=== PATIENT | male | born 1940 | race Caucasian/White ===

== ENCOUNTER 2019-11-02 12:57 | Outpatient (CLI) | payer MEDICARE ==
--- NOTE | 2019-11-02 14:37 | CT ---
CT CHEST WITH CONTRAST CLINICAL INDICATION: Cervical lymphadenopathy. Patient complains of bilateral neck palpable abnormalities. COMPARISON: None FINDINGS: Aorta: Minimal vascular calcifications are seen. Thoracic aorta is normal in caliber without evidence of an aortic dissection. Lungs: Calcified granulomata are seen in the left upper lobe with a tiny 3 mm nodular density seen at the lateral aspect of the lingula which also may represent a calcified granuloma but is too small to characterize. No additional discrete and noncalcified pulmonary nodule or mass is seen. No pleural effusion is evident. Minimal atelectasis versus scarring is seen at the posteromedial right lung base. Mediastinum: Calcified mediastinal and left hilar lymph nodes are present. No enlarged mediastinal, h ilar, or axillary lymph nodes are seen by CT size criteria. A dual-lead left subclavian cardiac pacemaking device is noted in place. A 1.9 cm x 1.5 cm soft tissu e density mass is seen in the anterior and inferior left atrium. There is a mass seen in the posterior neck soft tissues measuring 2.9 cm x 2 cm most suggestive of an enlarged right level 5 lymph node. Thyroid gland: Normal CT appearance. Osseous structures: Scattered degenerative changes and Schmorl's nodes are seen in the thoracic spine . Chest wall: No abnormality visualized. . Small hiatal hernia. Upper abdomen: Small hiatal hernia is present. Remainder of the upper abdomen demonstrates a normal C T appearance. IMPRESSION: 1. Left atrial mass measuring 1.9 cm in greatest dimension. Cardiac echocardiogram is recommended for further evaluation. 2. Enlarged right level 5 lymph node. 3. No evidence of mediastinal, axillary, or hilar lymphadenopathy. 4. Difficult to characterize 3 mm nodular density in the region of the lingula. This is closely adjac ent to 2 calcified granulomata and may also represent a calcified granuloma but is too small to characterize.
--- NOTE | 2019-11-02 15:07 | CT ---
CT neck soft tissues with contrast: DATE: 11/02/2019 HISTORY: 79-year-old male with R 59.0 cervical lymphadenopathy Palpable masses in the bilateral neck. 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 Lesser degree of such change in the contralateral left TMJ. Large amount of dental metallic hardware causes severe streak artifact, obscuring portions of oral cavity, buccal space, and portions of masti cator, submandibular, and superficial spaces. External marker adjacent to the palpable mass at right posterior neck corresponds to a large, lobulat ed well-circumscribed soft tissue density mass in the right posterior cervical space, indenting the lateral surface of the the right posterior paraspinal musculature from approximately the C3 level to the C6-7 level. The other external marker was placed lateral to the left submandibular region. No underlying mass is identified in the submandibular spaces bilaterally around the subcutaneous fat lateral to the left submandibular space. The upper one thirds of the bilateral submandibular glands and 7 mm spaces are obscured by the streak artifact mentioned above. No obvious major pathology is identified involving the parapharyngeal, pharyngeal mucosal, retrophary ngeal, computer support analyst, or perivertebral, spaces. Atherosclerotic calcification of bilateral proximal internal carotid arteries, including carotid bulbs. High-grade multilevel degenerative disc disease i n the cervical spine. Medialization of the right vocal cord. No obvious tumor mass identified at the thoracic inlet or upper mediastinum. Heavily calcified lymph nodes in subcarinal mediastinum and left hilum. IMPRESSION: 1. Large soft tissue density mass in the right posterior cervical space. Differential diagnosis inclu zee neurogenic tumor such as schwannoma arising from a branch of right spinal accessory nerve, versus malignant right level 5 lymph node, versus sarcoma. 2. Evidence for Right vocal cord paralysis. 3. High-grade arthrosis of bilateral temporomandibular joints, right worse than left. 4. Cervical spondylosis.
== END 2019-11-02 12:58 | disposition home or self-care (01) ==
LOC: SCSCT 12:57
PROVIDERS: ATTEND Specialist
DX: R59.0 Localized enlarged lymph nodes (principal); J98.4 Other disorders of lung; R93.89 Abnormal findings on diagnostic imaging of other specified body structures; J38.01 Paralysis of vocal cords and larynx, unilateral; M47.812 Spondylosis without myelopathy or radiculopathy, cervical region; M26.69 Other specified disorders of temporomandibular joint; M79.89 Other specified soft tissue disorders
CPT/HCPCS: 70491; 71260

== ENCOUNTER 2019-12-01 11:50 | Outpatient (CLI) | payer MEDICARE ==
--- NOTE | 2019-12-01 15:29 | PET ---
Radionucleotide PET scan with CT attenuation correction HISTORY: Diffuse large B-cell lymphoma. Head and neck. Initial staging. FINDINGS: Physiologic uptake of radiotracer throughout the enteric system and along each urinary trac t. Activity associated with the large right lower neck mass shows max SUV 21.3. Morphologic appearance is not significantly changed from recent CT neck 11/02/2019. Uptake at the soft tissue density area within the right maxillary sinus shows max SUV 5.8. There is e vidence of extensive internal fixation with metallic hardware. Immediately posterior to the lower central incisors, a focal area of increased uptake shows max SUV 6 .6. No hypermetabolic metabolic abnormalities are evident at the cardiac left atrial abnormality describe d on recent CT chest. No abnormal activity is apparent elsewhere. Nondiagnostic CT attenuation correction images show asymmetry of the aryepiglottic folds, right more pronounced than left, without hypermetabolic activity. Old right posterior rib fractures. Evidence of healed granulomatous disease throughout the chest and abdomen. Small hiatal hernia. Bilateral pars interarticularis defects evident at the lumbosacral junction. Diverticula arise from the colon without adjacent inflammation. IMPRESSION : Viable lymphoma limited to the large right lower posterior neck mass. Douville score 5. Activity associated with the gum tissue immediately posterior to the lower central incisors may be re active. Please correlate with clinical inspection regarding possibility of mucosal abnormality. Activity associated with the right maxillary sinus, where extensive trauma and surgery is evident, is favored to be reactive/inflammatory. Diverticulosis. No evidence of diverticulitis.
== END 2019-12-01 11:51 | disposition home or self-care (01) ==
LOC: PET 11:50
PROVIDERS: ATTEND Internal Medicine Hematology & Oncology
DX: C83.31 Diffuse large B-cell lymphoma, lymph nodes of head, face, and neck (principal); K57.90 Diverticulosis of intestine, part unspecified, without perforation or abscess without bleeding
CPT/HCPCS: 78815; A9552

== ENCOUNTER 2019-12-09 08:20 | Day surgery (SDC) | payer MEDICARE ==
[2019-12-08 10:50] VITALS: BMI 27.2
--- NOTE | 2019-12-08 17:12 | HP ---
HISTORY OF PRESENT ILLNESS: Paulino Croft is a 79-year-old male patient who I saw regarding a right posterior triangle neck mass that I felt uncomfortable inspecting because it was intimately associated with the spinal accessory nerve. The patient saw Dr. Dunn who removed this and the patient has done well. Pathology reveals lymphoma, B-cell. He has seen Dr. Snigh and has had a PET scan without evidence of other disease. He has an appointment to see Dr. Cr. The patient is followed by Dr. Mahajan and had a recent echocardiogram, cardiac evaluation. He is followed by Dr. Renée Murillo. Plan is for a low-profile MediPort outpatient, IV sedation and local anesthesia. He understands the risks and benefits, consents. MEDICATIONS: 1. Aspirin. 2. Atenolol. 3. Multivitamins. 4. Vitamin D3. 5. Vitamin C. 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 PAST SURGICAL HISTORY: Left shoulder lipoma removed, Dr. Elier Martines, 2016; pacemaker, 2013; echocardiogram, left atrial mass, 2013; laparoscopic bilateral inguinal hernia repairs, Dr. Lang, 2011; colonoscopy, polyps, Dr. Murillo, recheck in 7 years; recent excision of lymphoma of right posterior triangle; skin cancers removed. Tobacco cessation in 1989, ayl-vrd-i-half packs prior; alcohol, occasional beer, occasional drink. FAMILY HISTORY: Father , lymphoma, cardiac disease, Alzheimer's. Mother . ALLERGIES: NONE. REVIEW OF SYSTEMS: Noncontributory otherwise. PHYSICAL EXAMINATION: VITAL SIGNS: 177 pounds, 67 inches, blood pressure 130/67, 60 heart rate, 99 degrees. HEAD, EARS, EYES, NOSE AND THROAT: Unremarkable. LUNGS: Clear to auscultation. CARDIAC: Regular rate and rhythm without murmur or gallop. ABDOMEN: Soft, nontender. EXTREMITIES: Unremarkable. Well-healed right posterior triangle neck incision. Spinal accessory nerve, good function, normal. ASSESSMENT/PLAN: B-cell lymphoma. PLAN: MediPort placement. He understands risks and benefits and consents. Job ID: [id number]
[2019-12-09 08:34] LABS: #Basophils 0.1 thou/uL (0.0-0.2); #Eosinphils 0.1 thou/uL (0.0-0.7); #Lymphocytes 1.2 thou/uL (1.20-3.40); #Monocytes 0.5 thou/uL (0.11-0.59); #Neutrophils 4.1 thou/uL (1.40-6.50); %Basophils 1.5 % (0.0-1.0); %Eosinophils 1.5 % (0.0-10.0); %Lymphocytes 19.8 % (21.0-51.0); %Monocytes 8.1 % (0.0-10.0); %Neutrophils 69.1 % (42.0-75.0); Hemoglobin 15.9 g/dL (14.0-18.0); Mean Corpuscular HGB CONC 33.4 g/dL (32.0-36.0); Mean Corpuscular Hemoglobin 31.6 pg (27.0-31.0); Mean Corpuscular Volume 94.5 fL (78.0-98.0); Mean Platelet Volume 8.7 fL (7.4-10.4); Platelet Count 189 thou/uL (130-400); RBC Distribution Width 12.1 % (11.5-14.5); Red Blood Cell (RBC) Count 5.05 mill/uL (4.70-6.10); White Blood Cell (WBC) Count 5.9 thou/uL (4.8-10.8)
[2019-12-09] MEDS ORDERED: Fentanyl 100 MCG/2 ML VIAL ONE (08:37)
[2019-12-09] MEDS ORDERED: Sodium Bicarbonate 2.5 MEQ/5 ML VIAL ONE (08:37)
[2019-12-09] MEDS ORDERED: Midazolam HCl 2 mg/2 ml Vial ONE (08:37)
[2019-12-09 08:43] LABS: INR-International Normal Ratio 0.9; PTT 25.7 sec (22.9-36.1); Prothrombin Time 12.6 sec (12.0-14.7)
[2019-12-09 08:59] LABS: ALT (SGPT) 24 U/L (8-55); AST (SGOT) 23 U/L (5-34); Albumin 4.7 g/dL (3.4-4.8); Alkaline Phosphatase 95 U/L (40-110); Anion Gap 10 mmol/L (10-20); BUN (Urea Nitrogen) 16 mg/dL (8.4-25.7); Calc. Creatinine Clearance 82 mL/min (70-130); Calcium 9.7 mg/dL (7.8-10.44); Carbon Dioxide 30 mmol/L (23-31); Chloride 106 mmol/L (98-107); Estimated GFR-MDRD 85; Globulin 2.6 g/dL (2.4-3.5); Glucose 101 mg/dL (83-110); Potassium 4.4 mmol/L (3.5-5.1); Protein, Total 7.3 g/dL (5.8-8.1); Sodium 142 mmol/L (136-145); Uric Acid 6.3 mg/dL (3.5-7.2)
[2019-12-09 09:29] VITALS: BP 132/81; TEMP 98.4
--- NOTE | 2019-12-09 11:23 | CT ---
Exam: CT guided bone marrow biopsy HISTORY: Lymphoma COMPARISON: None FINDINGS: Successful CT-guided bone marrow biopsy of the right iliac bone. A single 11-gauge core [place]annah ple was obtained. Total of 9 cc of marrow was aspirated. No immediate or postprocedural complications TECHNIQUE: Consent obtained to perform a right iliac wing bone marrow biopsy. The patient was placed in a prone position on the CT gantry. The right iliac bone was deemed appropriate. Skin was prepped and draped in a sterile fashion. 1% lidocaine, buffered with sodium bicarbonate was used for local an esthesia. Under CT guidance, 11-gauge needle was advanced into the right iliac bone. Once the needle broke through the cortex, total of 9 cc of marrow was aspirated. A single bone marrow biopsy w as performed using the needle. Adequate sample was obtained. Patient tolerated the procedure well. No immediate or postprocedure complications IMPRESSION: Successful CT-guided bone marrow biopsy.
--- NOTE | 2019-12-12 15:04 | CT ---
Exam: CT guided bone marrow biopsy HISTORY: Lymphoma COMPARISON: None FINDINGS: Successful CT-guided bone marrow biopsy of the right iliac bone. A single 11-gauge core [place]annah ple was obtained. Total of 9 cc of marrow was aspirated. No immediate or postprocedural complications TECHNIQUE: Consent obtained to perform a right iliac wing bone marrow biopsy. The patient was placed in a prone position on the CT gantry. The right iliac bone was deemed appropriate. Skin was prepped and draped in a sterile fashion. 1% lidocaine, buffered with sodium bicarbonate was used for local an esthesia. Under CT guidance, 11-gauge needle was advanced into the right iliac bone. Once the needle broke through the cortex, total of 9 cc of marrow was aspirated. A single bone marrow biopsy w as performed using the needle. Adequate sample was obtained. Patient tolerated the procedure well. No immediate or postprocedure complications IMPRESSION: Successful CT-guided bone marrow biopsy. Transcribed Date/Time: 12/12/2019 3:04 PM
== END 2019-12-09 11:30 | disposition home or self-care (01) ==
LOC: RAD 08:20
PROVIDERS: ATTEND Internal Medicine Hematology & Oncology
DX: C83.31 Diffuse large B-cell lymphoma, lymph nodes of head, face, and neck (principal); Z79.82 Long term (current) use of aspirin; Z79.899 Other long term (current) drug therapy; Z87.891 Personal history of nicotine dependence; Z95.0 Presence of cardiac pacemaker
CPT/HCPCS: 20225; 36415; 77012; 80053; 83615; 84550; 85025; 85097; 85610; 85730; 88184; 88237; 88264; 88280; 88305; 88311; 88313; 88341; 88342; J2250; J3010

== ENCOUNTER 2019-12-13 06:05 | Outpatient (CLI) | payer MEDICARE, OTHER ==
[2019-12-14 13:49] LABS: SARS-CoV-2 MS2 Positive; SARS-CoV-2 N Gene Negative; SARS-CoV-2 S Gene Negative; SARS-CoV-2 orf1ab Negative
== END 2019-12-13 06:06 | disposition home or self-care (01) ==
LOC: LABBT 06:05
PROVIDERS: ATTEND Specialist
DX: Z01.812 Encounter for preprocedural laboratory examination (principal); Z11.59 Encounter for screening for other viral diseases; C85.10 Unspecified B-cell lymphoma, unspecified site
CPT/HCPCS: 87635; 93005; 93010; U0003

== ENCOUNTER 2019-12-16 07:31 | Day surgery (SDC) | payer MEDICARE ==
[2019-12-09 11:49] VITALS: BMI 26.3
[2019-12-16] MEDS ORDERED: Fentanyl 100 MCG/2 ML VIAL ONE (10:57)
[2019-12-16] MEDS ORDERED: Propofol 500 MG/50 ML VIAL ONE (10:57)
[2019-12-16] MEDS ORDERED: Midazolam HCl 2 mg/2 ml Vial ONE (10:57)
[2019-12-16] MEDS ORDERED: Lidocaine 1% w/Epinephrine 1:100K 20 ML VIAL ONE (11:00)
[2019-12-16] MEDS ORDERED: Bupivacaine PF 0.5% 30 ML VIAL ONE (11:00)
--- NOTE | 2019-12-16 12:29 | RAD ---
EXAM: Single view of the chest HISTORY: Status post Mediport placement COMPARISON: 03/01/2014 FINDINGS: Single view of the chest shows a normal sized cardiomediastinal silhouette. A right-sided Mediport is seen with its tip in the superior vena cava. No pneumothorax is seen. A left-sided pacemaker seen with its leads in the right atrium and ventricle. There is a calcified left hilar lymp h node. A stable calcified granuloma projects over the left mid thorax. The bones are unremarkable. IMPRESSION: Status post Mediport placement without evidence complication.
--- NOTE | 2019-12-16 14:16 | OP ---
DATE OF PROCEDURE: 12/16/2019 PREOPERATIVE DIAGNOSIS: Lymphoma. POSTOPERATIVE DIAGNOSIS: Lymphoma. PROCEDURE PERFORMED: Right subclavian vein low-profile MediPort, PowerPort. ANESTHESIA: TIVA, local with 0.5% Marcaine 30 mL, mixed with 1% Xylocaine with epinephrine 20 mL. Fluoroscopy used. DESCRIPTION OF PROCEDURE: The patient was taken to the operating room, on supine position, where under intravenous sedation, right chest clipped of hair, prepared with ChloraPrep, and draped in routine fashion. Local anesthetic mixture was infiltrated into the skin and subcutaneous tissue. Trocar and catheter in the infraclavicular approach to access the right subclavian vein, threading the J-wire. An incision was made to accommodate the port and subcutaneous pocket created, noted good hemostasis. Dilator and Peel-Away sheath placed over the J-wire into the subclavian vein and superior vena cava. Dilator and J-wire were removed. Catheter placed over the Peel-Away sheath. Peel-Away sheath removed. Fluoroscopic images obtained to place the catheter tip in optimal position in the superior vena cava, catheter tailored to length, connected to the MediPort, placed in the subcutaneous pocket and secured with 2 interrupted suture of 3-0 Prolene. Subcutaneous tissue was approximated with 3-0 Monocryl, skin with subdermal 4-0 Monocryl and [place] glue applied. Final fluoroscopic images revealed good line and port placement. Curry needle accessed the MediPort, aspirated blood, flushed with saline and heparinized saline solution. The patient tolerated the procedure well. Job ID: [id number]
== END 2019-12-16 12:40 | disposition home or self-care (01) ==
LOC: SDC 07:31
PROVIDERS: ATTEND Specialist
PROC: 0JH60WZ Insertion of Totally Implantable Vascular Access Device into Chest Subcutaneous Tissue and Fascia, Open Approach (ICD-10-PCS; principal; 2019-12-16)
PROC: 02HV33Z Insertion of Infusion Device into Superior Vena Cava, Percutaneous Approach (ICD-10-PCS; 2019-12-16)
PROC: B518ZZA Fluoroscopy of Superior Vena Cava, Guidance (ICD-10-PCS; 2019-12-16)
DX: C83.31 Diffuse large B-cell lymphoma, lymph nodes of head, face, and neck (principal); I49.5 Sick sinus syndrome; Z87.891 Personal history of nicotine dependence; Z79.82 Long term (current) use of aspirin; Z79.899 Other long term (current) drug therapy; Z95.0 Presence of cardiac pacemaker
CPT/HCPCS: 36561; 71045; C1788; J0690; J1642; J2250; J2704; J3010; S0020

== ENCOUNTER 2020-02-21 08:15 | Outpatient (CLI) | payer MEDICARE ==
--- NOTE | 2020-02-21 10:34 | PET ---
Radionucleotide PET scan with CT attenuation correction HISTORY: Diffuse large B-cell lymphoma. Restaging. COMPARISON: 12/01/2019. FINDINGS: Physiologic uptake of radiotracer is apparent throughout the enteric system and along each urinary tract. Reactive uptake at the base of the right maxillary sinus current max SUV 4.7 (previously 5.8) Reactive uptake at the posterior base of the lower incisors current max SUV 6.4 (previously 6.6). Sli ght asymmetry of the aryepiglottic folds with reactive uptake now evident. At the right posterior neck base, no hypermetabolic activity is now apparent max SUV 0.8. Lymph nodes are significantly smaller on the prior exam on the nondiagnostic CT attenuation correction images. Small hiatal hernia is again demonstrated. Other incidental findings are stable. IMPRESSION : Complete response. Interval resolution of hypermetabolic activity associated with the right neck tez opathy. No new abnormalities.
== END 2020-02-21 08:16 | disposition home or self-care (01) ==
LOC: PET 08:15
PROVIDERS: ATTEND Internal Medicine Hematology & Oncology
DX: C83.30 Diffuse large B-cell lymphoma, unspecified site (principal); R59.0 Localized enlarged lymph nodes
CPT/HCPCS: 78815; A9552

== ENCOUNTER 2020-05-31 09:39 | Outpatient (CLI) | payer MEDICARE ==
--- NOTE | 2020-05-31 11:26 | PET ---
EXAM: PET/CT HISTORY: History of diffuse large B-cell lymphoma TECHNIQUE: PET scanning with CT attenuation correction was performed from the vertex of the brain to the proxima l thighs following the intravenous administration of 11.2 millicuries [id number]. COMPARISON: PET/CT dated February 21, 2020 FINDINGS: Biodistribution:The biodistribution for the exam appears acceptable. Head and neck: There is appropriate background activity within the brain. No hypermetabolic lymphaden opathy or masses identified. Mild suspected reactive hypermetabolic uptake involving a right posterior maxillary molar and the man dibular incisors persists. No residual activity is seen at the aryepiglottic folds as seen on the prior exam. Thorax: No hypermetabolic pulmonary lesion, pleural effusion or lymphadenopathy is present. No hyperm etabolic pleural effusion is evident. There is a calcified granuloma in the left upper lobe. There are calcified lymph nodes within the mediastinum and left hilar region. There is a left subclavian ch est wall pacemaker. Abdomen and pelvis: There is expected background activity within the GI and systems. No hypermetab olic mass, lymphadenopathy or ascites is present. No hypermetabolic ascites is present. There is scattered colonic diverticulosis. There are calcified granuloma within the liver. Adrenal glands are normal.. Osseous structures and skin: No hypermetabolic skin or osseous lesion is identified. There is bilater al pars defects at L5 with rate 1 anterolisthesis. There is scattered degenerative and osteoarthritic change present. IMPRESSION: * No hypermetabolic lymphadenopathy is identified. * Mild reactive hypermetabolic uptake involving the right posterior maxillary molar and mandibular i ncisors is suspicious for periodontal disease. Dental referral is recommended.
== END 2020-05-31 09:40 | disposition home or self-care (01) ==
LOC: PET 09:39
PROVIDERS: ATTEND Internal Medicine Hematology & Oncology
DX: C83.30 Diffuse large B-cell lymphoma, unspecified site (principal); R93.89 Abnormal findings on diagnostic imaging of other specified body structures
CPT/HCPCS: 78815; A9552

== ENCOUNTER 2020-08-05 10:10 | Inpatient (IN) | payer MEDICARE ==
[2020-08-05] MEDS ORDERED: Dextrose 5% in Water 1,000 ML IV PRN (11:26)
[2020-08-05] MEDS ORDERED: Dextrose 50% Abboject 50 ML SYRINGE SLOW IVP PRN (11:26)
[2020-08-05] MEDS ORDERED: Ondansetron PF 4 MG/2 ML Vial IVP PRN (11:26)
[2020-08-05] MEDS ORDERED: hydrALAZINE 20 MG/ML VIAL SLOW IVP PRN (11:26)
[2020-08-05 11:33] VITALS: BMI 23.6
--- NOTE | 2020-08-05 12:17 | CON ---
DATE OF CONSULTATION: 08/05/2020 HISTORY OF PRESENT ILLNESS: The patient is a 80-year-old male who was transferred by [facility] ER for left frontal contusion following a fall. The patient was reportedly walking his dog when he had a mechanical fall. He was found by a bystander with positive LOC. He was brought to [place] ER and evaluated with a noncontrasted CT head and cervical spine. CT of the cervical spine was negative for acute injury. CT of the head was notable for a contrecoup injury with left frontal contusion. The patient takes an 81 mg aspirin. His platelets and coags were unremarkable. Reportedly, per their ER, somewhat confused, otherwise neurologically intact. The patient transferred to [facility] for neurosurgical consultation and admission to the Trauma Service. PAST MEDICAL HISTORY: Hypertension, non-Hodgkin lymphoma. PAST SURGICAL HISTORY: Hernia repair, tonsillectomy. SOCIAL HISTORY: He lives at home. He does not smoke, drink, or use any drugs. Current medication list is unavailable. The patient does report that he takes an 81 mg aspirin daily. He denies any other anticoagulants. REVIEW OF SYSTEMS: Per HPI. PHYSICAL EXAMINATION: VITAL SIGNS: Stable. CONSTITUTIONAL: He awakens easily. He is oriented x4. No acute distress. HEAD: He has a large right forehead contusion with overlying abrasion. EYES: PERRLA. Extraocular movements intact. ENT: [place], intact, moist. He has normal voice. NECK: Nontender. Free active range of motion. No meningismus or nuchal rigidity. CARDIAC: Regular rate and rhythm. PULMONARY: Symmetric chest expansion. No evidence of dyspnea. MUSCULOSKELETAL: No obvious deformities. Symmetric pulses. NEURO: He is alert and oriented to person, place, and time. He does have some difficulty remembering the events of the accident and is asking repeated questions, slightly confused. GCS 14. He is otherwise moving all 4's easily with good strength throughout. No gross motor deficits are appreciated. ASSESSMENT AND PLAN: This is a 80-year-old male with a mechanical fall and contrecoup injury with left frontal contusion. We will go ahead and watch him closely with q.2h neuro checks overnight and repeat his a.m. head CT. We should hold his aspirin. I have discussed the plan with the Trauma Service as well as Dr. Enrique. We will follow along closely. Job ID: [id number]
[2020-08-05] MEDS: Acetaminophen 500 MG TAB PO SCH ×2 (12:27→18:48)
[2020-08-05] MEDS: Sodium Chloride 0.9% 1,000 ML IV SCH ×2 (12:28→19:44)
--- NOTE | 2020-08-05 14:02 | HP ---
TRAUMA SURGEON: Dr. Bergeron. CONSULTING PHYSICIAN: Dr. Benavidez. HISTORY OF PRESENT ILLNESS: The patient is a 80-year-old male, who originally presented to [place] ER after a fall on the ice while walking his dog. He did have a loss of consciousness. Upon arrival to the emergency department, he was found to have a left frontal subdural and subarachnoid hemorrhages. Neurosurgery was consulted, who recommended transfer. On the outside hospital, the patient's GCS was 13, and it was unknown if he was on anticoagulation, and subsequently, he was transferred to the ICU. Upon my evaluation with Neurosurgery, we both felt that the patient was appropriate for transfer to the floor as his GCS was 14, and he was only minimally confused. He was amnestic to the events. He reports taking aspirin 81 mg once a day. He denies numbness or tingling in his bilateral upper or lower extremities. Reports that he has a mild headache. He does have a hematoma to his right forehead. REVIEW OF SYSTEMS: All additional 10-point review of systems negative except as indicated above. PAST MEDICAL HISTORY: Non-Hodgkin lymphoma, hypertension, and pacemaker placement for symptomatic bradycardia. PAST SURGICAL HISTORY: Jaw surgery, pacemaker placement, multiple biopsies, hernia repair, and tonsillectomy. SOCIAL HISTORY: The patient denies tobacco or drug use. He drinks about one beer a day. He lives at home with his and does not use any walker or cane to get around. MEDICATIONS: Include, 1. Aspirin 81 mg once a day. 2. Atenolol. 3. Various vitamins. ALLERGIES: NO KNOWN DRUG ALLERGIES. PHYSICAL EXAMINATION: VITAL SIGNS: Temperature 97.8, pulse 60, respirations 16, oxygen saturation 98% on room air, and blood pressure 158/66. PRIMARY SURVEY: Airway intact. Equal breath sounds bilaterally. 2+ pulses in bilateral radials, femorals, and DPs. GCS 14, -1 for confusion. Gross motor and sensation intact. No lacerations or external bleeding. He does have a right forehead hematoma with swelling. SECONDARY SURVEY: HEAD: Normocephalic. No gross palpable skull deformities or tenderness. EYES: Pupils 3-2, equal, round, and reactive to light bilaterally. ENT: No signs of trauma. FACE: The patient with right-sided forehead hematoma without any significant bleeding. C-SPINE: No step-offs or deformities. Nontender. C-collar not in place. ABDOMEN: Soft, nontender, nondistended. PELVIS: Stable to palpation. Nontender. No abrasions or ecchymosis noted. RECTAL: Deferred. GENITOURINARY: Deferred. EXTREMITIES: No gross deformities. No abrasions or ecchymosis noted. 2+ pulses in bilateral radials, femorals, and DPs. BACK/SPINE: No step-offs or deformities or tenderness to palpation of thoracic or lumbar spine. No abrasions or ecchymosis noted. NEUROLOGIC: 5/5 strength in bilateral incubator operator, plantar flexion, and dorsiflexion. Gross normal sensation x4 extremities. LABORATORY FINDINGS: White count 4.6, hemoglobin 13.6, hematocrit 39.0, and platelets 203. INR 1.0, PTT 22.8. Sodium 140, potassium 3.8, chloride 107, bicarb 28, BUN 16, creatinine 0.82, glucose 143. Troponin less than 0.10. DIAGNOSTIC FINDINGS: CT scan of the brain demonstrates subdural and subarachnoid hemorrhages along the left frontal and left parafalcine convexity. Small amount of subarachnoid blood along the right frontal convexity. Right scalp hematoma. CT scan of the C-spine demonstrates no cervical spinal fracture. Heterogeneous lucency along the cervical spine. Correlate for bone demineralization versus malignancy. The patient had a recent PET-CT, which was unremarkable when compared to the current exam with soft tissue. CT neck from 11/02/2019, the overall attenuation of the cervical vertebrae is stable. Interval development of a calcification on the left vocal cord. Direct visualization is recommended. ASSESSMENT: 1. Status post mechanical fall from standing. 2. Left frontal and left parafalcine subdural and subarachnoid hemorrhages. 3. History of non-Hodgkin lymphoma, pacemaker, and hypertension. PLAN: The patient is admitted to the Trauma Service. He can be transferred to the surgical nursing floor. Q.2 hours neuro checks. Head of the bed at 30 degrees. Goal systolic blood pressure less than 160. The patient to work with PT, OT, and Speech. Repeat head CT in the morning per Neurosurgery recommendation. The patient may be able to go home versus inpatient rehab when he is ready for discharge. This patient was discussed with Dr. Bergeron before this dictation. Job ID: [id number]
[2020-08-05 18:07] LABS: SARS-CoV-2 PCR by NAA Not Detected (NotDetected)
[2020-08-05] MEDS: Famotidine/PF 20 mg/2ml Vial SLOW IVP SCH (19:42)
[2020-08-05] MEDS: Senokot S 8.6-50 MG TAB PO SCH (19:43)
[2020-08-06] MEDS: Acetaminophen 500 MG TAB PO SCH ×5 (00:48→19:20)
[2020-08-06] MEDS ORDERED: Polyethylene Glycol 3350 17 GM Packet ONE (08:35)
[2020-08-06] MEDS ORDERED: Senokot S 8.6-50 MG TAB ONE (08:38)
[2020-08-06] MEDS ORDERED: Famotidine/PF 20 mg/2ml Vial ONE (09:26)
[2020-08-06] MEDS: Polyethylene Glycol 3350 17 GM Packet PO SCH (09:31)
[2020-08-06] MEDS: Famotidine/PF 20 mg/2ml Vial SLOW IVP SCH (09:31)
[2020-08-06] MEDS: Senokot S 8.6-50 MG TAB PO SCH ×2 (09:31→21:12)
--- NOTE | 2020-08-06 11:20 | CT ---
CT HEAD WITHOUT IV CONTRAST COMPARISON: 08/05/2020 HISTORY: Reevaluate traumatic brain injury. TECHNIQUE: Axial CT imaging at 5 mm intervals from vertex through skull base without contrast FINDINGS: Again noted is evidence of areas of subarachnoid hemorrhage in the bifrontal regions with small amoun t of subdural hemorrhage in a left parafalcine location and left anterior frontal region which is stable compared to prior exam. A new approximately 7 mm rounded focus of intraparenchymal hemorrhage is seen just superior to the region of the greater wing of sphenoid in the right anterior frontal lobe suggesting small focal contusion. There is no evidence of an acute infarction, mass effect, or m idline shift. The ventricular system is normal in size, shape, and position. Postoperative changes in each maxillary antrum are present with persistent opacification of the limit ed visualized right maxillary antrum. Mucosal thickening is present ethmoidal air cells bilaterally with trace mucosal thickening in right sphenoid sinus. Again noted is the right anterolateral frontal scalp hematoma as well as right periorbital subcutaneo us soft tissue swelling. Osseous structures appear intact. IMPRESSION: 1. New focal intraparenchymal hemorrhage/contusion in the inferior right frontal lobe just superior t o the region of the greater wing of the sphenoid bone measuring approximately 7 mm. 2. Stable subdural and subarachnoid hemorrhage along the left frontal and left parafalcine locations. Stable minimal subarachnoid hemorrhage is present in the right anterior frontal region. 3. Right periorbital subcutaneous soft tissue swelling and right frontal scalp hematoma.
[2020-08-06] MEDS ORDERED: FLU VACC QS2020-21(65YR UP)/PF 240 MCG/0.7 ML SYRINGE IM ONE (11:45)
[2020-08-06] MEDS: Acetaminophen 500 MG TAB ONE ×2 (11:58→19:05)
--- NOTE | 2020-08-06 12:13 | PRG ---
DATE OF SERVICE: 08/06/2020 SUBJECTIVE: The patient was seen and examined. I agree with Kaylan Padilla's evaluation on 08/05/2020. The patient is a 80-year-old man with a mechanical fall while walking his dog. There was positive loss of consciousness. Currently, he is alert and appropriate. He does seem to have insight as to his condition. This is a marked improvement from the way he was yesterday. He has a nonfocal neurologic exam. The patient's CT scan reveals a left frontal contusion. He had been on 81 mg of aspirin. IMPRESSION AND PLAN: We will await the patient's repeat CT scan. Assuming this is stable, he can be safely mobilized to discharge. He should hold aspirin, and I will arrange the 4-week followup head CT. Job ID: [id number]
[2020-08-06 15:52] LABS: Anion Gap 16 mmol/L (10-20); BUN (Urea Nitrogen) 12 mg/dL (8.4-25.7); Calc. Creatinine Clearance 85 mL/min (70-130); Calcium 8.8 mg/dL (7.8-10.44); Carbon Dioxide 19 mmol/L (23-31); Chloride 106 mmol/L (98-107); Glucose 62 mg/dL (83-110); Magnesium 2.1 mg/dL (1.6-2.6); Phosphorus 3.1 mg/dL (2.3-4.7); Potassium 4.1 mmol/L (3.5-5.1); Sodium 137 mmol/L (136-145)
[2020-08-06] MEDS: Sodium Chloride 0.9% 1,000 ML IV SCH ×3 (16:32→21:12)
[2020-08-06 19:07] LABS: Band 8 % (5-11); Eosinophils 1 % (0-10); Hemoglobin 12.7 g/dL (14.0-18.0); Lymphocytes 5 % (21-51); MDiff Complete? YES; Mean Corpuscular HGB CONC 32.9 g/dL (32.0-36.0); Mean Corpuscular Hemoglobin 31.8 pg (27.0-31.0); Mean Corpuscular Volume 96.6 fL (78.0-98.0); Mean Platelet Volume 8.2 fL (7.4-10.4); Monocytes 11 % (0-10); Neutrophil 71 % (42-75); Platelet Count 203 thou/uL (130-400); Platelet Morphology Comment Appears Adequate; Polychromasia SLIGHT = 2-3 cells (100X) (0-2/hpf); RBC Distribution Width 12.2 % (11.5-14.5); Reactive Lymphocytes 4 % (0-10); Red Blood Cell (RBC) Count 4.01 mill/uL (4.70-6.10); White Blood Cell (WBC) Count 8.9 thou/uL (4.8-10.8)
[2020-08-07] MEDS: Acetaminophen 500 MG TAB PO SCH ×3 (01:17→11:41)
[2020-08-07] MEDS: Sodium Chloride 0.9% 1,000 ML IV SCH (06:12)
[2020-08-07 06:32] VITALS: TEMP 98.1
[2020-08-07] MEDS: Senokot S 8.6-50 MG TAB PO SCH (08:10)
[2020-08-07] MEDS: Polyethylene Glycol 3350 17 GM Packet PO SCH (08:10)
[2020-08-07 11:08] VITALS: BP 143/78
--- NOTE | 2020-08-07 13:58 | DIS ---
DATE OF ADMISSION: 08/05/2020 DATE OF DISCHARGE: 08/07/2020 DISCHARGING PHYSICIAN: Dr. Jaime. ADMITTING DIAGNOSIS: Contrecoup injury with left frontal contusion. DISCHARGE DIAGNOSIS: CT head normal, stable contrecoup injury with left frontal contusion. PROCEDURES PERFORMED: None. HISTORY AND HOSPITAL COURSE: A 80-year-old man, was admitted to the hospital after slip and fall. The patient had a brief loss of consciousness. CT head shows contrecoup injury with left frontal contusion. Aspirin was stopped on admission. CT head and cervical spine were negative for acute injury. The patient was placed on q.2 neuro checks. Repeat head CT on 08/06, showed stable contrecoup and left frontal contusion. The patient was discharged yesterday, but due to the inclement whether, the patient was not able have a ride. The patient at the time of discharge was instructed not to restart aspirin until he follows up with Neurosurgery in 4 weeks. The patient was given Dr. Benavidez's number to call to make a followup appointment and repeat head CT. At the time of discharge, patient is tolerating diet, GCS 15. The patient has a large right forehead contusion with overlying abrasion. PHYSICAL EXAMINATION: EYES: PERRLA. Extraocular movement intact. PULMONARY: Symmetric chest expansion. No evidence of dyspnea. CARDIAC: Regular rate and rhythm. MSK: No obvious deformities. FOLLOWUP: Follow up with Dr. Benavidez, call to make appointment in 4 weeks. Hold aspirin until followup with Dr. Benavidez. Return to the emergency department if you develops severe headaches, loss of consciousness, difficulty speaking, or change in motor movements. Job ID: [id number] [facility]
== END 2020-08-07 14:00 | disposition home or self-care (01) | DRG 605 ==
LOC: CCU 11:02 → SJJU 18:44
PROVIDERS: ADMIT Surgery; ATTEND Surgery
DX: S00.93XA Contusion of unspecified part of head, initial encounter (principal); W00.0XXA Fall on same level due to ice and snow, initial encounter; I10 Essential (primary) hypertension; R40.2413 Glasgow coma scale score 13-15, at hospital admission; Z20.822 Contact with and (suspected) exposure to COVID-19; Y93.K1 Activity, walking an animal; Z95.0 Presence of cardiac pacemaker; Z90.89 Acquired absence of other organs; Z85.72 Personal history of non-Hodgkin lymphomas
CPT/HCPCS: 70450; 80048; 83735; 84100; 85025; 87635; J2405; S0028; U0003; U0005

== ENCOUNTER 2020-08-29 11:37 | Emergency (ER) | payer MEDICARE ==
[2020-08-29 12:13] LABS: Hemoglobin 14.8 g/dL (14.0-18.0); Mean Corpuscular HGB CONC 33.5 g/dL (32.0-36.0); Mean Corpuscular Hemoglobin 32.4 pg (27.0-31.0); Mean Corpuscular Volume 96.6 fL (78.0-98.0); Platelet Count 178 thou/uL (130-400); RBC Distribution Width 12.3 % (11.5-14.5); Red Blood Cell (RBC) Count 4.56 mill/uL (4.70-6.10); White Blood Cell (WBC) Count 3.4 thou/uL (4.8-10.8)
[2020-08-29 12:30] LABS: ALT (SGPT) 21 U/L (8-55); AST (SGOT) 25 U/L (5-34); Albumin 4.4 g/dL (3.4-4.8); Alkaline Phosphatase 94 U/L (40-110); Anion Gap 14 mmol/L (10-20); BUN (Urea Nitrogen) 9 mg/dL (8.4-25.7); Bilirubin, Total 0.6 mg/dL (0.2-1.2); Calc. Creatinine Clearance 0 mL/min (70-130); Calcium 9.6 mg/dL (7.8-10.44); Carbon Dioxide 27 mmol/L (23-31); Chloride 105 mmol/L (98-107); Globulin 2.5 g/dL (2.4-3.5); Glucose 104 mg/dL (83-110); Potassium 4.1 mmol/L (3.5-5.1); Protein, Total 6.9 g/dL (5.8-8.1); Sodium 142 mmol/L (136-145)
[2020-08-29 12:35] LABS: Eosinophils 1 % (0-10); Lymphocytes 20 % (21-51); MDiff Complete? YES; Monocytes 13 % (0-10); Neutrophil 66 % (42-75); Platelet Morphology Comment Appears Adequate; RBC Morphology Normal
[2020-08-29 13:15] LABS: Bilirubin Negative (Negative); Blood, Urine Negative (Negative); Clarity Clear (Clear); Glucose, Urine (Dipstick) Normal (Negative); Ketone, Urine Negative (Negative); Leukocyte Negative Leu/uL (Negative); Nitrite Negative (Negative); Protein, Urine (Dipstick) Negative (Neg-Trace); Specific Gravity, Urine 1.005 (1.002-1.036); Urobilinogen Normal mg/dL (Less than 2)
== END 2020-08-29 14:30 | disposition home or self-care (01) ==
LOC: ERS 11:37
DX: H93.13 Tinnitus, bilateral (principal); I10 Essential (primary) hypertension; Z87.891 Personal history of nicotine dependence; Z79.899 Other long term (current) drug therapy
CPT/HCPCS: 70450; 80053; 81003; 84484; 85025; 93005

== ENCOUNTER 2020-10-01 09:35 | Emergency (ER) | payer MEDICARE ==
[2020-10-01] MEDS ORDERED: Meclizine HCl 25 MG TAB ONE (10:41)
[2020-10-01] MEDS ORDERED: Diazepam 5 MG TAB ONE (10:41)
[2020-10-01 11:56] LABS: #Lymphocytes 0.3 thou/uL (1.20-3.40); #Monocytes 0.4 thou/uL (0.11-0.59); #Neutrophils 9.3 thou/uL (1.40-6.50); %Basophils 0.3 % (0.0-1.0); %Eosinophils 0.2 % (0.0-10.0); %Lymphocytes 3.1 % (21.0-51.0); %Monocytes 4.3 % (0.0-10.0); %Neutrophils 92.2 % (42.0-75.0); Hemoglobin 14.5 g/dL (14.0-18.0); Mean Corpuscular HGB CONC 32.6 g/dL (32.0-36.0); Mean Corpuscular Hemoglobin 31.5 pg (27.0-31.0); Mean Corpuscular Volume 96.5 fL (78.0-98.0); Platelet Count 188 thou/uL (130-400); RBC Distribution Width 12.1 % (11.5-14.5); Red Blood Cell (RBC) Count 4.59 mill/uL (4.70-6.10); White Blood Cell (WBC) Count 10.1 thou/uL (4.8-10.8)
[2020-10-01 12:17] LABS: ALT (SGPT) 17 U/L (8-55); AST (SGOT) 23 U/L (5-34); Albumin 4.3 g/dL (3.4-4.8); Alkaline Phosphatase 84 U/L (40-110); Anion Gap 17 mmol/L (10-20); BUN (Urea Nitrogen) 18 mg/dL (8.4-25.7); Bilirubin, Total 0.7 mg/dL (0.2-1.2); Calc. Creatinine Clearance 0 mL/min (70-130); Calcium 9.2 mg/dL (7.8-10.44); Carbon Dioxide 22 mmol/L (23-31); Chloride 106 mmol/L (98-107); Globulin 2.5 g/dL (2.4-3.5); Glucose 125 mg/dL (83-110); Potassium 4.1 mmol/L (3.5-5.1); Protein, Total 6.8 g/dL (5.8-8.1); Sodium 141 mmol/L (136-145)
== END 2020-10-01 13:25 | disposition home or self-care (01) ==
LOC: ERS 09:35
DX: R42 Dizziness and giddiness (principal); I10 Essential (primary) hypertension; Z87.891 Personal history of nicotine dependence; Z79.82 Long term (current) use of aspirin; Z79.899 Other long term (current) drug therapy
CPT/HCPCS: 36415; 70450; 80053; 85025; 93005